=== PATIENT | male | born 1945 | race Caucasian/White ===

== ENCOUNTER 2021-01-26 13:38 | Emergency (ER) | payer OTHER, MEDICARE, SELFPAY ==
[2021-01-26 13:40] VITALS: BP 145/66; PULSE 86; RESP 14; TEMP 36.6; O2SAT 95; BMI 25.8
[2021-01-26 16:42] VITALS: BP 139/88; PULSE 98; RESP 18; O2SAT 100
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
[2021-01-26 18:00] VITALS: RESP 18
--- NOTE | 2021-01-26 18:01 | RAD_ITS ---
STUDY: X-RAY - PELVIS AND LEFT HIP REASON FOR EXAM: Male, 75 years old. Hip pain TECHNIQUE: XR Hip Unilateral with Pelvis when performed; 2-3 Views COMPARISON: None. FINDINGS: There is a non-specific bowel gas pattern. Normal visualized soft tissue structures. Degenerative findings of the spine. Normal bilateral iliac wings, sacroiliac joints and visualized sacrum. Normal bilateral superior and inferior pubic rami. Normal pubic symphysis. Normal bilateral ischial tuberosities. Normal visualized femoral head. Normal acetabulum. Normal hip joint. RAD/HIP, UNI W/ Pelvis 2-3 Views IMPRESSION: There are no acute findings. Electronically Signed: Gregorio Bishop MD at 18:37 EST , Service support ,
[2021-01-26] MEDS: Acetaminophen 500 MG Tablet 1000 MG PO (18:58)
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
[2021-01-26 20:17] VITALS: BP 130/90; PULSE 86; RESP 18
== END 2021-01-26 20:22 | disposition home or self-care (01) ==
PROVIDERS: Emergency Provider Emergency Medicine
DX: S22.32XA Fracture of one rib, left side, initial encounter for closed fracture (principal); S70.02XA Contusion of left hip, initial encounter; G47.30 Sleep apnea, unspecified; E78.5 Hyperlipidemia, unspecified; I10 Essential (primary) hypertension; V44.5XXA Car driver injured in collision with heavy transport vehicle or bus in traffic accident, initial encounter; Z87.442 Personal history of urinary calculi; Z79.899 Other long term (current) drug therapy; Z79.82 Long term (current) use of aspirin
CPT/HCPCS: 71101; 73502; 99284